=== PATIENT | male | born 1995 | race Caucasian/White ===

== ENCOUNTER 2017-07-17 17:43 | Emergency (ER) | payer BC ==
[2017-07-17 17:52] VITALS: BP 169/94
--- NOTE | 2017-07-17 18:14 | EDM.PDOC ---
ED HPI GENERAL MEDICAL PROBLEM - General Chief Complaint: Neck Problem Stated Complaint: NECK PAIN Time Seen by Provider: 07/17/17 17:50 Source of Information: Reports: Patient History Limitations: Reports: No Limitations - History of Present Illness INITIAL COMMENTS - FREE TEXT/NARRATIVE: The patient presents with neck pain. He had been ill yesterday and vomited multiple times. He developed neck pain after the vomiting. He feels better now. He has some nausea but no vomiting. He has no diarrhea and no abdominal pain. He denies fever or chills. He has no dysuria or hematuria. He has no numbness or weakness. The pain is in the posterior neck and it is midline. Onset: Sudden Duration: Day(s): (Yesterday) Location: Reports: Neck Quality: Reports: Sharp Severity: Moderate Improves with: Reports: Immobilization Worsens with: Reports: Movement Context: Reports: Other (After vomiting) Associated Symptoms: Reports: Nausea/Vomiting. Denies: Chest Pain, Cough, Fever /Chills, Headaches, Shortness of Breath Neck Pain Score (Numeric/FACES): 4 - Related Data Allergies Allergy/AdvReac Type Severity Reaction Status Date / Time No Known Allergies Allergy Verified 07/17/17 17:52 Home Meds: Home Meds Cyclobenzaprine [Flexeril] 10 mg PO TID PRN #20 tablet 07/17/17 [Rx] Venlafaxine [Effexor XR] 150 mg PO DAILY 07/17/17 [History] Past Medical History Psychiatric History: Reports: Depression Social & Family History - Tobacco Use Smoking Status *Q: Never Smoker - Recreational Drug Use Recreational Drug Use: No ED ROS GENERAL - Review of Systems Review Of Systems: See Below Constitutional: Reports: No Symptoms HEENT: Reports: No Symptoms Respiratory: Reports: No Symptoms Cardiovascular: Reports: No Symptoms Endocrine: Reports: No Symptoms GI/Abdominal: Reports: No Symptoms : Reports: No Symptoms Musculoskeletal: Reports: Neck Pain Skin: Reports: No Symptoms Neurological: Reports: No Symptoms ED EXAM, UPPER BACK/NECK PAIN - Physical Exam Exam: See Below Exam Limited By: No Limitations General Appearance: Alert, No Apparent Distress Ears Exam: Normal External Exam Nose Exam: Normal Inspection Head Exam: Atraumatic, Normocephalic Neck Exam: Normal Alignment, Other (Pain upon palpation to the mid line c-spine. ) Cardiovascular/Respiratory: Regular Rate, Rhythm, No M/R/G, Normal Peripheral Pulses, Normal Breath Sounds, No Respiratory Distress GI/Abdominal: Soft, Non-Tender, No Organomegaly, No Mass Back Exam: Normal Inspection Extremities: Normal Inspection Neurologic: Alert, Normal Mood/Affect ( ), Oriented x 3 Course - Vital Signs Last Recorded V/S: Last Vital Signs Temp 96.6 F 07/17/17 17:50 Pulse 64 07/17/17 17:50 Resp 16 07/17/17 17:50 BP 169/94 H 07/17/17 17:50 Pulse Ox 98 07/17/17 17:50 - Orders/Labs/Meds Orders: Active Orders 24 hr Category Date Time Status Cervical Spine 2V or 3V [CR] Stat Exams 07/17/17 17:56 Taken - Re-Assessments/Exams Free Text/Narrative Re-Assessment/Exam: 07/17/17 18:15 I offered the patient something for the nausea but he did not want anything. I will do an x-ray of his neck. 07/17/17 18:20 His x-ray looks good. I will get him on some flexeril and an antiinflammatory. Departure - Departure Time of Disposition: 18:20 Disposition: Home, Self-Care 01 Condition: Good Clinical Impression: Cervical strain, acute Qualifiers: Encounter type: initial encounter Qualified Code(s): S16.1XXA - Strain of muscle, fascia and tendon at neck level, initial encounter - Discharge Information Prescriptions: Cyclobenzaprine [Flexeril] 10 mg PO TID PRN #20 tablet PRN Reason: Pain Referrals: Saroj Meeks [Physician] - 3 Days Forms: ED Department Discharge Additional Instructions: Take flexeril every 8 hours as needed for pain. You may also take motrin or aleve for the pain. Try icing your neck for 15 minutes 3 to 4 times per day for 2 days. Follow up with Dr Gan if not better in a week. - My Orders Last 24 Hours: My Active Orders 07/17/17 17:56 Cervical Spine 2V or 3V [CR] Stat - Assessment/Plan Last 24 Hours: My Active Orders 07/17/17 17:56 Cervical Spine 2V or 3V [CR] Stat
--- NOTE | 2017-07-18 08:02 | CR ---
Cervical spine: AP, lateral and odontoid views of the cervical spine were obtained. Comparison: No previous study. Vertebral body heights and disc spaces are maintained. Prevertebral soft tissues are normal. No fracture, dislocation or other bony abnormality is seen. Impression: 1. No abnormality is identified on three-view cervical spine exam. Diagnostic code #1
== END 2017-07-17 18:30 | disposition home or self-care (01) ==
LOC: JD.ED 17:43
DX: S16.1XXA Strain of muscle, fascia and tendon at neck level, initial encounter (principal); F32.9 Major depressive disorder, single episode, unspecified; Z79.899 Other long term (current) drug therapy; X58.XXXA Exposure to other specified factors, initial encounter
CPT/HCPCS: 72040; 72040-26; 99283